=== PATIENT | female | born 1975 | race Caucasian/White ===

== ENCOUNTER → 2019-09-25 | Outpatient (CLI) | payer MEDICARE, OTHER ==
[2019-09-25 16:30] LABS: ALT 16 U/L (8-44); AST 18 U/L (13-35); Albumin/Globulin Ratio 2.61 (1.60-3.17); Alkaline Phosphatase 134 U/L (41-126); Bilirubin, Conjugated <0.20 mg/dL (0.20-0.40); Chol/HDL Ratio 2.46; Cholesterol 241 mg/dL (0-200); Globulin 1.8 g/dL (1.6-3.3); LDL Cholesterol,Calculated 127.8 mg/dL (0.0-131.0); Total Bilirubin 0.5 mg/dL (0.3-1.2); Total Protein 6.5 g/dL (6.2-8.2)
[2019-09-25 17:50] LABS: Phenytoin (Dilantin) 3.9 ug/mL (10.0-20.0)
== END | disposition home or self-care (01) ==
LOC: LABWHC1 09:44
PROVIDERS: ATTEND Internal Medicine
DX: E78.2 Mixed hyperlipidemia (principal); G40.509 Epileptic seizures related to external causes, not intractable, without status epilepticus
CPT/HCPCS: 36415; 80061; 80076; 80177; 80185

== ENCOUNTER → 2022-02-04 | Outpatient (CLI) | payer MEDICARE, OTHER ==
[2022-02-04 18:27] LABS: HCT 43.8 % (37.2-46.3); MCH 30.4 pg (27.0-32.0); Mean Platelet Volume 10.8 fL (9.5-12.2); NRBC Per 100 WBC 0 /100 WBCS (0.0-0.0); Platelet Count 186 X 10*3/uL (140-440); RBC 4.61 X 10*6/uL (4.10-5.20); RDW 12.1 % (11.5-14.5)
[2022-02-04 18:42] LABS: ALT 27 U/L (8-44); AST 23 U/L (13-35); African American GFR (CKD) 134.5 (60.0-200.0); Albumin 4.6 g/dL (3.8-4.9); Albumin/Globulin Ratio 2.42 (1.60-3.17); Alkaline Phosphatase 183 U/L (41-126); Calcium 9.6 mg/dL (8.7-10.3); Carbon Dioxide 29.9 mmol/L (20.0-27.5); Chloride 104 mmol/L (96-109); Globulin 1.9 g/dL (1.6-3.3); Glucose 86 mg/dL (70-110); Non-African American GFR(CKD) 116.1 (60.0-200.0); Phenytoin (Dilantin) 12.8 ug/mL (10.0-20.0); Potassium 4.3 mmol/L (3.5-5.5); Sodium 141 mmol/L (135-145); Total Bilirubin <0.15 mg/dL (0.30-1.20); Total Protein 6.5 g/dL (6.2-8.2)
== END | disposition home or self-care (01) ==
LOC: LABWHC1 13:12
PROVIDERS: ATTEND Psychiatry & Neurology Neurology
DX: R56.9 Unspecified convulsions (principal)
CPT/HCPCS: 36415; 80053; 80175; 80185; 85027